=== PATIENT | male | born 1970 | race Caucasian/White ===

== ENCOUNTER 2020-11-27 15:47 | Emergency (ER) | payer OTHER ==
[~2020-11-27] VITALS: Ht 172.7 cm; Wt 88.9 kg
[2020-11-27 16:15] LABS: BASOPHILS % (AUTO) 0.9 % (0.0-2.0); EOSINOPHILS % (AUTO) 1.4 % (1.0-6.0); HEMATOCRIT 51.5 % (41-53); LYMPHOCYTES # (AUTO) 3.5 K/uL (1.0-4.8); LYMPHOCYTES % (AUTO) 39.2 % (22.0-44.0); MEAN CORPUSCULAR HEMOGLOBIN 31.3 pg (26.0-34.0); MEAN CORPUSCULAR VOLUME 95 fL (80-100); MONOCYTES # (AUTO) 0.5 K/uL (0.1-1.0); MONOCYTES % (AUTO) 6.2 % (2.0-9.0); NEUTROPHILS # (AUTO) 4.6 K/uL (1.8-7.7); NEUTROPHILS % (AUTO) 52.3 % (40.0-70.0); PLATELET COUNT (AUTO) 349 K/uL (150-450); RED BLOOD CELL COUNT(AUTO) 5.43 MIL/uL (4.50-5.90); RED CELL DISTRIBUTION WIDTH 12.7 % (11.5-14.5)
[2020-11-27] MEDS ORDERED: NALOXONE HCL 1 MG/ML 2 ML SYG IVP ONE (16:15)
[2020-11-27 16:24] LABS: ANION GAP 15 mmol/L (8-16); CALCIUM, TOTAL 9.2 mg/dL (8.8-10.5); CARBON DIOXIDE 24 mmol/L (22-29); CHLORIDE 101 mmol/L (98-107); CREATININE 1.44 mg/dL (0.60-1.30); GLOMERULAR FILTR. RATE CALC 52 mL/min (>60); GLUCOSE,RANDOM 246 mg/dL (70-110); POTASSIUM 3.3 mmol/L (3.5-5.1); SODIUM SERUM 140 mmol/L (136-145); UREA NITROGEN, BLOOD 16 mg/dL (7-18)
[2020-11-27 16:26] LABS: SALICYLATE < 2.8 mg/dL (2.8-20.0)
[2020-11-27 16:48] LABS: ALANINE AMINOTRANSFERASE 47 U/L (12-78); ALBUMIN 4.1 g/dL (3.4-5.0); ALKALINE PHOSPHATASE 124 U/L (46-116); ASPARTATE AMINOTRANSFERASE 22 U/L (15-37); BILIRUBIN,TOTAL 0.5 mg/dL (0.1-1.0); CREATINE KINASE, TOTAL ONLY 115 U/L (39-308); TOTAL PROTEIN, SERUM 8.5 g/dL (6.4-8.2)
[2020-11-27 17:03] LABS: ACETAMINOPHEN < 2 mcg/mL (10-30)
[2020-11-27 17:04] LABS: COVID AG,FIA SOURCE NASOPHARYNGEAL
[2020-11-27] MEDS ORDERED: ONDANSETRON HCL 4 MG/2 ML VIAL IVP ONE (19:30)
[2020-11-27 20:00] VITALS: BP 118/70
== END 2020-11-27 20:09 | disposition home or self-care (01) ==
LOC: EMS 15:53
DX: T40.601A Poisoning by unspecified narcotics, accidental (unintentional), initial encounter (principal); Z20.822 Contact with and (suspected) exposure to COVID-19; Y92.89 Other specified places as the place of occurrence of the external cause
CPT/HCPCS: 36415; 71045; 80053; 82550; 85025; 87426; 93005; 96374; 99291; G0480; G0481